=== PATIENT | female | born 1990 | race Native Hawaiian/Other Pacific Islander ===

== ENCOUNTER 2018-09-17 21:03 | Emergency (ER) | payer OTHER ==
--- NOTE | 2018-09-17 21:19 | C.PDOC ---
History Of Present Illness 27 year old female with no prior medical history or surgeries presents to the ED via EMS for evaluation of sudden onset abdominal pain associated with nausea that began prior to arrival. The patient describes the pain as a sharp non- radiating pain and notes having no symptoms throughout the day. She notes drinking soda which exacerbated the pain. Denies fever, chills, diarrhea, constipation, and any other associated symptoms. <Lionel Bernal - Last Filed: 09/18/18 00:57> History Per: Patient History/Exam Limitations: no limitations Onset/Duration Of Symptoms: Other (prior to arrival. ) Current Symptoms Are (Timing): Still Present Location Of Pain/Discomfort: Epigastric Recent travel outside of the [place]: No <Lionel Bernal - Last Filed: 09/18/18 00:57> <Korey Almeida - Last Filed: 09/18/18 02:14> Time Seen by Provider: 09/17/18 21:13 Chief Complaint (Nursing): Abdominal Pain Past Medical History Reviewed: Historical Data, Nursing Documentation, Vital Signs Family History: States: Unknown Family Hx - Social History Hx Alcohol Use: No Hx Substance Use: No <Lionel Bernal - Last Filed: 09/18/18 00:57> Vital Signs: Last Vital Signs Temp 97.8 F 09/18/18 00:41 Pulse 81 09/18/18 00:41 Resp 20 09/18/18 00:41 BP 105/61 09/18/18 00:41 Pulse Ox 99 09/18/18 00:41 <Korey Almeida - Last Filed: 09/18/18 02:14> Review Of Systems Except As Marked, All Systems Reviewed And Found Negative. (ROS: all other sys tems negative except as noted in the HPI.) Gastrointestinal: Positive for: Nausea, Abdominal Pain <Lionel Bernal - Last Filed: 09/18/18 00:57> Physical Exam - Physical Exam Additional Physical Exam Comments: Gen: VS reviewed, alert, well developed, well nourished, nontoxic, mild distress Eye: EOMI, PERRL Neck: no JVD, supple, no adenopathy CV: regular rate, regular rhythm, no rubs, no murmur, S1, S2 Pulm: no distress, clear to auscultation, no wheeze, no rhonchi, breath sounds equal, no rales Abd: soft, epigastric pain with some guarding, no rebound/rigidity, no rebound, no rigidity Extremities: no edema Skin: good color, no rash, no cyanosis Psych: responds appropriately to questions, normal affect Neuro: oriented x3, CN2-12 intact grossly, motor intact, sensation intact <Lionel Bernal - Last Filed: 09/18/18 00:57> ED Course And Treatment - Laboratory Results Result Diagrams: 09/17/18 21:27 09/17/18 21:27 - CT Scan/US Gallbladder US Other Rad Studies (CT/US): Read By Radiologist, Radiology Report Reviewed CT/US Interpretation: Impression: No acute abnormality to explain the patient's pain. Nonobstructing right renal nephrolithiasis. <Lionel Bernal - Last Filed: 09/18/18 00:57> - Laboratory Results Result Diagrams: 09/17/18 21:27 09/17/18 21:27 O2 Sat by Pulse Oximetry: 99 Pulse Ox Interpretation: Normal Progress Note: 2:05 AM Pt is pain free. wants to go home. Spoke with dr bethany coleman to n[place]. Spoke with the patient at length. Will return in 12-24 hours if symptoms recur Reevaluation Time: 02:10 Reassessment Condition: Improved <Korey Almeida - Last Filed: 09/18/18 02:14> Medical Decision Making Medical Decision Making: Plan: -Blood sent. Urine HCG US Gallbladder & Hepatic case discussed with dr. diallo for admission, he refused the admission, he has requested a CT of the abdomen to look for inflammation of the pancreas. i informed him that he would be getting a phone call back after the CT and that the patient will still require admission. case endorsed to dr. almeida, pending CT a/p and disposition. <Lionel Bernal - Last Filed: 09/18/18 00:57> Medical Decision Making: As per dr sims, admission is not warranted since patient is pain free. She should return if pain recurs Upon provider reevaluation patient is feeling better, is medically stable, and requires no further treatment in the ED at this time. Patient will be discharged home with Rx for flagyl and zofran. Counseling was provided and all questions were answered regarding diagnosis and need for follow up with candis hernandez. There is agreement to discharge plan. Return if symptoms persist or worsen. <Korey Almeida - Last Filed: 09/18/18 02:14> Disposition <Lionel Bernal - Last Filed: 09/18/18 00:57> Counseled Patient/Family Regarding: Studies Performed, Diagnosis, Need For Followup, Rx Given - Disposition Disposition Time: 01:00 <Korey Almeida - Last Filed: 09/18/18 02:14> - Disposition Referrals: Donovan Hernandez MD [Staff Provider] - Disposition: HOME/ ROUTINE Condition: FAIR Additional Instructions: Please return if symptoms recur Prescriptions: Metronidazole [Flagyl] 500 mg PO TID #21 tablet Ondansetron ODT [Zofran ODT] 1 odt PO BID PRN #6 odt PRN Reason: Nausea/Vomiting Instructions: Acute Abdomen (Belly Pain), Adult (DC), Pancreatitis (DC) Forms: [employer] (Divehi) - Clinical Impression Clinical Impression: Abdominal pain, Elevated lipase - Scribe Statement The provider has reviewed the documentation as recorded by the Scribe (Manuela Luis) Provider Attestation: All medical record entries made by the Scribe were at my direction and personally dictated by me. I have reviewed the chart and agree that the record accurately reflects my personal performance of the history, physical exam, medical decision making, and the department course for this patient. I have also personally directed, reviewed, and agree with the discharge instructions and disposition. <Lionel Bernal - Last Filed: 09/18/18 00:57>
[2018-09-17] MEDS ORDERED: Sodium Chloride 0.9% 1,000 ML IV SCH (21:30)
[2018-09-17 21:31] LABS: BASO # 0.1 K/uL (0.0-0.2); BASO % 0.8 % (0.0-2.0); EOS # 1.1 K/uL (0.0-0.7); EOS % 7.4 % (0.0-4.0); HEMOGLOBIN 8.7 g/dL (11.0-16.0); LYMPH # 2.4 K/uL (1.0-4.3); LYMPH % 16.4 % (20.0-40.0); MEAN CORPUSCULAR HEMOGLOBIN 17.9 pg (27.0-31.0); MEAN CORPUSCULAR HGB CONC 29.7 g/dL (33.0-37.0); MEAN PLATELET VOLUME 9.4 fL (7.2-11.7); MONO # 0.6 K/uL (0.0-0.8); MONO % 4.4 % (0.0-10.0); NEUT # 10.3 K/uL (1.8-7.0); NRBC % 0.1 % (0.0-2.0); RBC 4.87 Mil/uL (3.80-5.20); RED CELL DISTRIBUTION WIDTH 18.7 % (11.5-14.5); WHITE BLOOD COUNT 14.4 K/uL (4.8-10.8)
[2018-09-17 21:34] LABS: MEAN CELL VOLUME 60.2 fL (81.0-99.0)
[2018-09-17 21:45] LABS: ALB/GLOB RATIO 1.3 (1.0-2.1); ALBUMIN 3.9 g/dL (3.5-5.0); ALT/SGPT 20 U/L (9-52); AST/SGOT 24 U/L (14-36); BLOOD UREA NITROGEN 13 mg/dL (7-17); CALCIUM 8.9 mg/dl (8.6-10.4); GFR NON-AFRICAN AMERICAN > 60; LIPASE 805 U/L (23-300)
[2018-09-17] MEDS ORDERED: Sodium Chloride 0.9% 1,000 ML ONE (21:58)
[2018-09-17] MEDS ORDERED: Sodium Chloride 0.9% 1,000 ML IV ONE (22:24)
[2018-09-17] MEDS ORDERED: Iohexol 240 (50 ml) PO ONE (23:56)
[2018-09-18 00:01] LABS: HDL CHOLESTEROL 31 mg/dL (30-70)
[2018-09-18] MEDS ORDERED: Iohexol 240 (50 ml) ONE (00:07)
[2018-09-18 00:11] LABS: LDL CHOLESTEROL 102 mg/dL (0-129)
[2018-09-18] MEDS ORDERED: Iodixanol 320 MG/ML 100 ML BOTTLE IV ONE (01:14)
[2018-09-18] MEDS ORDERED: metroNIDAZOLE IV 500 mg/100 ml 500 MG/100 ML BAG IVPB SCH (02:15)
[2018-09-18 02:25] VITALS: BP 107/86; PULSE 75; RESP 22; TEMP -97.8; O2SAT 100
--- NOTE | 2018-09-18 07:40 | CT ---
CT abdomen and pelvis HISTORY: Abdominal pain. COMPARISON: None available. TECHNIQUE: Multiple contiguous axial images performed through the abdomen and pelvis with the use of intravenous contrast. Subsequently, sagittal and coronal reformatted images were obtained. This CT exam was performed using one or more of the following dose reduction techniques: Automated exposure control, adjustment of the mA and/or kV according to patient size, and/or use of iterative reconstruction technique. Findings: Lung bases are clear. No pleural or pericardial effusion. Liver is preserved. Partially contracted gallbladder. Spleen is preserved. Adrenal glands are preserved. Pancreas is preserved. Few mildly thickened and distended loops of small bowel in the upper mid abdomen which may represent enteritis. Clinical correlation. Right kidney: No calculi or hydronephrosis. Left Kidney: No calculi or hydronephrosis. Urinary bladder is grossly preserved. Heterogeneous uterus and bilateral adnexa. Right adnexa measures up to 2.5 centimeters. Left adnexa measures up to 3 centimeters. Lower abdominal bowel appears grossly preserved. Appendix is within normal limits. Few shotty para-aortic and inguinal lymph nodes. Few shotty mesenteric lymph nodes. Mild degenerative changes in the spine. Few inferior endplate concavities at the L3 through L5 vertebral bodies. Schmorl's node formation with inferior endplate concavities at the T11 level. Additional inferior endplate concavity at the T10 vertebral body level. Rounded sclerotic focus noted within the proximal right femur at the level of the junction of the base of the greater trochanter and proximal medullary cavity measuring 1.4 centimeter suggestive for a prominent bone island. Trace free fluid in the pelvic cul-de-sac. Impression: 1. Mild diffuse thickening of small bowel loops, possibly representing a mild enteritis. Clinical correlation. 2. Trace free fluid in the pelvic cul-de-sac. 3. Heterogeneous uterus and bilateral adnexa. Clinical correlation. A preliminary report was generated at 1:54 a.m. on 09/18/[address] Jennifer Sharp from [employer]
--- NOTE | 2018-09-18 08:16 | US ---
Right upper quadrant abdominal ultrasound HISTORY: Right upper quadrant abdominal pain. COMPARISON: None available. TECHNIQUE: Real-time sonography was performed through the right upper quadrant of the abdomen. Findings: Liver: 15.9 centimeters in length. Normal echogenicity of the hepatic parenchymal cortex. Gallbladder: No calculi or sludge. Normal wall thickness of 2.6 millimeters. Negative sonographic Brewer's sign. Common bile duct measures 2.4 millimeters, within normal limits. Limited visualization of the pancreas. Visualized aorta and IVC are grossly preserved. Right kidney: 11.2 x 3.8 x 4.5 centimeters. Midpole echogenic foci in the right kidney measuring 4 millimeter suggestive for nonobstructive calculus versus calcification. No hydronephrosis. Impression: 4 millimeter midpole echogenic foci in the right kidney suggestive for nonobstructive calculus versus calcification. Clinical correlation. Limited visualization of the pancreas. A preliminary report was generated at 11:37 p.m. on 09/17/[address] Ayaz Kam from [employer]
== END 2018-09-18 02:30 | disposition home or self-care (01) ==
LOC: C.ER 21:03
DX: R74.8 Abnormal levels of other serum enzymes (principal); R10.9 Unspecified abdominal pain
CPT/HCPCS: 74177; 76705; 80053; 80061; 83690; 85025; 96360; 99285; J7030; Q9966; Q9967